=== PATIENT | female | born 1995 | race Caucasian/White ===

== ENCOUNTER 2021-06-07 16:05 | Inpatient (IN) | payer OTHER ==
[2021-06-07] MEDS ORDERED: BETAMET ACET/BETAMET NA PH 30 MG/5 ML VIAL IM ONE (16:38)
[2021-06-07] MEDS ORDERED: PENICILLIN G POTASSIUM 20,000,000 (20Mm) UNITS VIAL IVPB ONE (16:39)
[2021-06-07] MEDS ORDERED: BETAMET ACET/BETAMET NA PH 30 MG/5 ML VIAL ONE (16:45)
[2021-06-07] MEDS ORDERED: PENICILLIN G POTASSIUM 5,000,000 UNIT in DEXTROSE 5%-WATER - 250 ML IVPB ONE (17:00)
[2021-06-07] MEDS ORDERED: OXYTOCIN 30 UNITS in 0.9% NS 30 UNIT/500 ML INFUS.BAG IVPB SCH (17:30)
[2021-06-07 18:11] VITALS: BMI 38.0
[2021-06-07 18:19] LABS: BASO % 0.2 % (0-2.0); EOS % 0.3 % (0-4.5); HEMATOCRIT 31.9 % (32.4-45.2); HEMOGLOBIN 10.8 GM/dL (10.7-15.3); LYMPH % 15.2 % (8-40); MCH 27.4 pg (25.7-33.7); MCHC 33.8 g/dl (32.0-36.0); MEAN CELL VOLUME 81.2 fl (80-96); MEAN PLT VOLUME 9.5 fl (7.5-11.1); MONO % 6.6 % (3.8-10.2); NEUT % 77.7 % (42.8-82.8); PLATELET COUNT 225 10^3/uL (134-434); RBC 3.93 M/mm3 (3.60-5.2); RDW 16.3 % (11.6-15.6); WHITE BLOOD COUNT 10.2 K/mm3 (4.0-10.0)
[2021-06-07 18:26] LABS: INR 0.97 (0.83-1.09); PROTHROMBIN TIME (PATIENT) 11.8 SEC (9.7-13.0)
[2021-06-07 18:29] LABS: ACTIVATED PTT 24.7 SECONDS (25.2-36.5)
[2021-06-07] MEDS ORDERED: DEXTROSE 5%-LACTATED RINGERS 1,000 ML IV SCH (18:30)
[2021-06-07 18:41] LABS: CALCIUM 8.6 mg/dL (8.5-10.1)
[2021-06-07 18:42] LABS: BLOOD UREA NITROGEN 8.2 mg/dL (7-18)
[2021-06-07 18:45] LABS: CREATININE 0.4 mg/dL (0.55-1.3)
[2021-06-07 19:36] LABS: HIV INTERPRETATION NEGATIVE (NEGATIVE)
[2021-06-07] MEDS ORDERED: OXYTOCIN 30 UNITS in 0.9% NS 30 UNIT/500 ML INFUS.BAG IVPB ONE (19:43)
[2021-06-07] MEDS: PENICILLIN G POTASSIUM 2,500,000 UNIT in DEXTROSE 5%-WATER - 100 ML IVPB SCH (21:05)
[2021-06-08] MEDS: PENICILLIN G POTASSIUM 2,500,000 UNIT in DEXTROSE 5%-WATER - 100 ML IVPB SCH ×2 (01:05→05:48)
[2021-06-08] MEDS ORDERED: OXYTOCIN 20 UNITS in 0.9% NS 20 UNIT/1,000 ML INFUS.BAG IV ONE (01:20)
[2021-06-08] MEDS ORDERED: ACETAMINOPHEN 325 MG TABLET (FP) PO PRN (01:39)
[2021-06-08] MEDS ORDERED: BENZOCAINE 28 GM HEMORRHOIDAL OINTMENT TP PRN (01:39)
[2021-06-08] MEDS ORDERED: BISACODYL 10 MG SUPP.RECT RC PRN (01:39)
[2021-06-08] MEDS ORDERED: BENZOCAINE 20% 57 GM BOTTLE TP PRN (01:39)
[2021-06-08] MEDS ORDERED: WITCH HAZEL 50% (TUCKS) 40 PAD/JAR PAD TP PRN (01:39)
[2021-06-08] MEDS ORDERED: METHYLERGONOVINE MALEATE 0.2 MG/1 ML AMP IM PRN (01:39)
[2021-06-08] MEDS ORDERED: OXYTOCIN 20 UNITS in 0.9% NS 20 UNIT/1,000 ML INFUS.BAG IV SCH (01:45)
[2021-06-08 04:46] LABS: EPI CELLS 18 /uL (0-25.1); HYALINE CASTS 2 /uL (0-3.1); PH,URINE 6.5 (5.0-8.0); URINE APPEARANCE TURBID; URINE BACTERIA 50 /uL (0-1359); URINE BILIRUBIN 1+ (NEGATIVE); URINE COLOR RED; URINE GLUCOSE (UA) TRACE (NEGATIVE); URINE KETONE 4+ (NEGATIVE); URINE LEUK ESTERASE 1+ (NEGATIVE); URINE NITRITE NEGATIVE (NEGATIVE); URINE PROTEIN 2+ (NEGATIVE); URINE RBC 27215 /uL (0-23.9); URINE UROBILINOGEN 0.2 mg/dL (0.2-1.0); URINE WBC 53 /uL (0-25.8)
[2021-06-08 09:26] LABS: POC NITRAZINE POS
[2021-06-08] MEDS: FERROUS SO4 325 MG TABLET (FP) PO SCH ×2 (09:28→13:03)
[2021-06-08] MEDS: PRENATAL VITAMINS W/ FOLIC ACID TABLET (FP) PO SCH (09:28)
[2021-06-08] MEDS ORDERED: MEASLES,MUMPS&RUBELLA VACC/PF 0.5 ML VIAL SQ ONE (10:00)
[2021-06-08 11:35] LABS: HEMATOCRIT 32.3 % (32.4-45.2); HEMOGLOBIN 10.6 GM/dL (10.7-15.3); MCH 26.7 pg (25.7-33.7); MCHC 32.8 g/dl (32.0-36.0); MEAN CELL VOLUME 81.5 fl (80-96); MEAN PLT VOLUME 10.2 fl (7.5-11.1); PLATELET COUNT 218 10^3/uL (134-434); RBC 3.96 M/mm3 (3.60-5.2); RDW 16.2 % (11.6-15.6); WHITE BLOOD COUNT 16.8 K/mm3 (4.0-10.0)
[2021-06-08 12:23] LABS: ANISOCYTOSIS 0; MACROCYTOSIS 0; PLATELET ESTIMATE NORMAL
[2021-06-08] MEDS: IBUPROFEN 600 MG TABLET (FP) PO PRN (13:09)
[2021-06-09] MEDS: FERROUS SO4 325 MG TABLET (FP) PO SCH ×2 (08:27→15:20)
[2021-06-09] MEDS: IBUPROFEN 600 MG TABLET (FP) PO PRN ×2 (08:27→14:52)
[2021-06-09 09:28] LABS: BASO % 0.5 % (0-2.0); EOS % 0.4 % (0-4.5); HEMATOCRIT 32.2 % (32.4-45.2); HEMOGLOBIN 10.7 GM/dL (10.7-15.3); LYMPH % 28.6 % (8-40); MCH 27.4 pg (25.7-33.7); MCHC 33.1 g/dl (32.0-36.0); MEAN CELL VOLUME 82.7 fl (80-96); MONO % 8.2 % (3.8-10.2); NEUT % 62.3 % (42.8-82.8); PLATELET COUNT 216 10^3/uL (134-434); RDW 16.3 % (11.6-15.6); WHITE BLOOD COUNT 11.9 K/mm3 (4.0-10.0)
[2021-06-09] MEDS: PRENATAL VITAMINS W/ FOLIC ACID TABLET (FP) PO SCH (11:02)
[2021-06-09 15:31] VITALS: BP 103/67; PULSE 69; TEMP 98
[2021-06-09] MEDS ORDERED: SENNOSIDES/DOCUSATE COMBO (SENNA PLUS) TABLET (UD) PO PRN (22:00)
== END 2021-06-09 15:40 | disposition home or self-care (01) | DRG 560 ==
LOC: JDEL 16:05 → JLDR 16:15 → J3W 06-08 03:38
PROVIDERS: ADMIT Family Medicine; ATTEND Family Medicine
PROC: 10E0XZZ Delivery of Products of Conception, External Approach (ICD-10-PCS; principal; 2021-06-08)
PROC: 0HQ9XZZ Repair Perineum Skin, External Approach (ICD-10-PCS; 2021-06-08)
DX: O69.81X0 Labor and delivery complicated by cord around neck, without compression, not applicable or unspecified (principal); O70.0 First degree perineal laceration during delivery; Z3A.36 36 weeks gestation of pregnancy; Z37.0 Single live birth
CPT/HCPCS: 36415; 59409; 80048; 81003; 83986-QW; 85025; 85610; 85730; 86780; 86850; 86900; 86901; 87389; 96372; C9803; U0003; U0005